=== PATIENT | female | born 1995 | race Caucasian/White ===

== ENCOUNTER 2016-10-20 21:42 | Emergency (ER) | payer OTHER ==
--- NOTE | 2016-10-20 23:58 | ED NURSING NOTES ---
Clinical Report - Nurses [facility] [address] [place] [address] 10/20/2016 21:45 Patient: JODEE BENNETT TRIAGE Triage time 22:13 Oct 20 2016. Acuity: LEVEL 4. Chief Complaint: INJURY TO LEFT ANKLE. 22:14 10/20/16. MARTHA COMA SCORE: [place] Coma Scale: 15- eyes open spontaneously (4); best verbal response- oriented x 4 (5); best motor response- obeys commands (6). --22:17 Cheri Menjivar R.N. 22:13 10/20/16. BP: 129/58. HR: 91. RR: 18. O2 saturation: 100%. Temp: 98.3 F. Pain level now: 11/13. --22:17 Cheri Menjivar R.N. Weight: 97 kg stated. Height/Length: 69 inches Per Patient. BMI: 31.6. --22:12 Cheri Menjivar R.N. Medications Inhalers x 2 . --22:14 Cheri Menjivar R.N. Medication/allergy information source: the patient. --22:17 Cheri Menjivar R.N. Allergies No Known Drug Allergy. --22:14 Cheri Menjivar R.N. History Arrived by private vehicle. Historian: patient. Accompanied by family. Mechanism of injury: sustained a twisting injury. ( tripped over 2 cats on the steps. internally rotated). 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 PAST MEDICAL HX: Uses depo injections. SOCIAL HX: Never smoker. No alcohol use or drug use. No infectious disease exposure. ABUSE ASSESSMENT: No report of abuse. NUTRITIONAL RISK ASSESSMENT: The nutritional risk assessment revealed no deficiencies. FUNCTIONAL ASSESSMENT: Functional assessment: no impairments noted. LEARNING NEEDS ASSESSMENT: The learning needs assessment revealed no barriers. SKIN INTEGRITY ASSESSMENT: Skin integrity risk assessment completed. No skin integrity risk identified. --22:17 Cheri Menjivar R.N. PROBLEMS: Asthma. --22:14 Cheri Menjivar R.N. ADDITIONAL SURGERIES: no known surgeries. Interventions ID band on patient. --22:17 Cheri Menjivar R.N. PHYSICAL ASSESSMENT 22:10/20/16. GENERAL / NEURO / PSYCH: Oriented X 4. Alert. Appears in no acute distress. EXTREMITIES: Pain with weight bearing. Left ankle: tenderness and swelling. Limited ROM secondary to pain (diminished plantar flexion, dorsiflexion, inversion and eversion). SKIN: Skin intact. Skin is warm and dry. --22: Cheri Menjivar R.N. NURSING PROGRESS NOTES 22:10/20/16. The initial plan of care for this patient includes an assessment with efforts to address the presence of pain; impairment of the musculoskeletal system. This plan of care was discussed with the patient. Cold pack applied to the left ankle. Reassurance given. Two patient identifiers checked. Call light placed in reach. Side rails up x 1. Bed placed in lowest position. Brakes of bed on. Patient ready for evaluation. --: Cheri Menjivar R.N. DISPOSITION / DISCHARGE 00:10/21/16. Condition at departure: improved and stable. The goals identified in the patient's plan of care were met. No learning barriers present. Reviewed medication(s) side effects, precautions, dosing and course information. Prescription(s) given to the patient. Reviewed referral to an orthopedic surgeon for followup. Summary of care provided to patient via paper. Patient verbalized understanding. Written instructions provided in Arabic. The patient was discharged home and accompanied by cuff runner. She left the Emergency Department ambulatory on crutches and via private vehicle. Patient driving. FALL RISK ASSESSMENT: Fall risk assessment completed. No fall risk identified. --00:15 Cheri Menjivar R.N. 00:15 10/21/16. BP: 122/69. HR: 70. RR: 16. O2 saturation: 100%. Temp: 98.5 F. Pain level now 5/10. --00:15 Cheri Menjivar R.N. Departure time: 00:Oct 21 2016. --00:15 Cheri Menjivar R.N. Locked/Released at 10/21/2016 0:15 by Cheri Menjivar R.N.
--- NOTE | 2016-10-20 23:58 | ED ORDER SUMMARY ---
..... Patient: JODEE BENNETT OrderSheet [facility] VisitID: [id number] [address] [place] [address] 21y, F Registration Date/Time: 10/20/2016 ORDER SHEET Weight: 97.0 kg (stated) Allergies: No Known Drug Allergy GENERAL ORDERS: Ankle 3 or 4V Left Urgent (22:23 10/20/2016 EInderbitzen R.N. verbal order read back to Kwadwo Blanc) (Ack 22:26 CHagerty ER Legal Stenographer) (22:41 HBivens A.R.N.P.) (Cancelled: Other22:41 HBivens A.R.N.P.) Foot 3V Left Urgent (22:41 10/20/2016 HBivens A.R.N.P.) (Ack 22:43 CHagerty ER Legal Stenographer) (22:45 CHagerty ER Legal Stenographer) Orthopedic Boot (23:57 10/20/2016 HBivens A.R.N.P.) (0:08 EInderbitzen R.N.) MEDICATION ORDERS: IV FLUIDS: ORDER SHEET NOTES: [Electronically signed by Cheri Menjivar R.N. (00:15 10/21/2016)] [Electronically signed by Rosa Carpenter A.R.N.P. (13:41 10/29/2016)] [Electronically locked/signed by Cheri Menjivar R.N. (00:15 10/21/2016)]
--- NOTE | 2016-10-20 23:58 | ED CLINICAL REPORT ---
Clinical Report - Physicians/Mid Levels [facility] [address] [place] [address] 10/20/2016 21:45 Patient: JODEE BENNETT Time Seen: 22:27; initial patient contact, initial documentation, patient care assumed. Arrived- By private vehicle. Historian- patient. HISTORY OF PRESENT ILLNESS Chief Complaint: Injury to the left foot. The injury happened just prior to arrival. The patient sustained a twisting injury (tripped over cat). Occurred at home. Patient is experiencing moderate pain. Patient denies injury to the head or neck. No other injury. REVIEW OF SYSTEMS The patient complains of pain on weight bearing. She has had swelling. No tingling, weakness, numbness or skin laceration. All systems otherwise negative, except as recorded above. PAST HISTORY See nurses notes. PROBLEMS: Asthma. --22:14 Cheri Menjivar R.N. ADDITIONAL SURGERIES: no known surgeries. SOCIAL HISTORY Never smoker. No alcohol use or drug use. No recent travel. Is a local resident. FAMILY HISTORY No significant family medical history. ADDITIONAL NOTES The nursing notes have been reviewed with agreement regarding the chief complaint, HPI, ROS, PMH and patient medications and allergies. PHYSICAL EXAM Vital Signs: 10/20/2016 22:13 BP: 129/58. HR: 91. RR: 18. O2 saturation: 100%. Temp: 98.3 F. Pain level now: 5/10. Have been reviewed as normal and appear to be correct. Appearance: Alert. Oriented X3. No acute distress. Head: Head atraumatic. Eyes: Pupils equal, round and reactive to light. Eyes normal inspection. Respiratory: No respiratory distress. Skin: Skin intact. Skin warm and dry. Extremities: Foot injury present. Left foot: mild tenderness of the proximal and distal dorsal aspect of the mid foot. Limited weight bearing secondary to pain. Neurovascular intact distally. No erythema, swelling, laceration, abrasion or ecchymosis. No puncture wound, foreign body or deformity. No ankle injury. Foot and ankle exam otherwise negative. Extremities otherwise negative. Neuro, Vascular and Tendons: Vascular status intact. Sensation intact. Motor intact. Tendon function intact. Gait: Abnormal gait. Gait not tested due to pain. Neuro: Oriented X 3. No motor deficit. No sensory deficit. Note: isolated injury to foot. LABS, X-RAYS, AND EKG X-Rays: Left foot. Lt Foot X-ray: (? third metatarsal fx reviewed by dr wolfe). The X-rays were independently viewed by me. PROGRESS AND PROCEDURES Patient and spouse counseled in person regarding the patient's stable condition, test results and diagnosis. Differential Diagnosis: Other possible considerations: foot fx vs sprain. Above considerations are based on history, physical exam, reassessment and X-Ray data. Differential diagnosis was discussed with patient. Disposition: Discharged home in good and improved condition (23:57). Condition: good and stable. CLINICAL IMPRESSION Closed fracture of the base of the third metatarsal of the left foot. No angulated fracture of the metacarpal. INSTRUCTIONS Apply ice for 20 minutes four times a day for two days until better. Don't apply ice directly to skin. Wear boot orthosis until better. Elevate affected areas above chest level for two days until better. Warnings: GENERAL WARNINGS: Return or contact your physician immediately if your condition worsens or changes unexpectedly, if not improving as expected, or if other problems arise. Specifically return if problem worsens. Prescription Medications: Ultram 50 mg tablets: take 1-2 orally every 6 hours as needed for pain. Dispense twenty (20). No refills. Substitution is permissible. Follow-up: Follow up with your doctor in about one week as needed. Call for an appointment. Summary of care provided to patient. Understanding of the discharge instructions verbalized by patient. Follow-up with: Zion Hoffman DPM, Podiatry, , [address] [place] [address]. [address], [place] [address]; Dajuan Cobian DPM, Podiatry, , [facility], [address] [place] [address], [address], [place] [address] Follow up in about three days even if well. Call for an appointment. Summary of care provided to patient. (Electronically signed by Rosa Carpenter A.R.N.P. 10/29/2016 13:41)
--- NOTE | 2016-10-20 23:58 | ED CLINICAL REPORT ---
Clinical Report - Physicians/Mid Levels [facility] [address] [place] [address] 10/20/2016 21:45 Patient: JODEE BENNETT Time Seen: 22:27; initial patient contact, initial documentation, patient care assumed. Arrived- By private vehicle. Historian- patient. HISTORY OF PRESENT ILLNESS Chief Complaint: Injury to the left foot. The injury happened just prior to arrival. The patient sustained a twisting injury (tripped over cat). Occurred at home. Patient is experiencing moderate pain. Patient denies injury to the head or neck. No other injury. REVIEW OF SYSTEMS The patient complains of pain on weight bearing. She has had swelling. No tingling, weakness, numbness or skin laceration. All systems otherwise negative, except as recorded above. PAST HISTORY See nurses notes. PROBLEMS: Asthma. --22:14 Cheri Menjivar R.N. ADDITIONAL SURGERIES: no known surgeries. SOCIAL HISTORY Never smoker. No alcohol use or drug use. No recent travel. Is a local resident. FAMILY HISTORY No significant family medical history. ADDITIONAL NOTES The nursing notes have been reviewed with agreement regarding the chief complaint, HPI, ROS, PMH and patient medications and allergies. PHYSICAL EXAM Vital Signs: 10/20/2016 22:13 BP: 129/58. HR: 91. RR: 18. O2 saturation: 100%. Temp: 98.3 F. Pain level now: 5/10. Have been reviewed as normal and appear to be correct. Appearance: Alert. Oriented X3. No acute distress. Head: Head atraumatic. Eyes: Pupils equal, round and reactive to light. Eyes normal inspection. Respiratory: No respiratory distress. Skin: Skin intact. Skin warm and dry. Extremities: Foot injury present. Left foot: mild tenderness of the proximal and distal dorsal aspect of the mid foot. Limited weight bearing secondary to pain. Neurovascular intact distally. No erythema, swelling, laceration, abrasion or ecchymosis. No puncture wound, foreign body or deformity. No ankle injury. Foot and ankle exam otherwise negative. Extremities otherwise negative. Neuro, Vascular and Tendons: Vascular status intact. Sensation intact. Motor intact. Tendon function intact. Gait: Abnormal gait. Gait not tested due to pain. Neuro: Oriented X 3. No motor deficit. No sensory deficit. Note: isolated injury to foot. LABS, X-RAYS, AND EKG X-Rays: Left foot. Lt Foot X-ray: (? third metatarsal fx reviewed by dr wolfe). The X-rays were independently viewed by me. PROGRESS AND PROCEDURES Patient and spouse counseled in person regarding the patient's stable condition, test results and diagnosis. Differential Diagnosis: Other possible considerations: foot fx vs sprain. Above considerations are based on history, physical exam, reassessment and X-Ray data. Differential diagnosis was discussed with patient. Disposition: Discharged home in good and improved condition (23:57). Condition: good and stable. CLINICAL IMPRESSION Closed fracture of the base of the third metatarsal of the left foot. No angulated fracture of the metacarpal. INSTRUCTIONS Apply ice for 20 minutes four times a day for two days until better. Don't apply ice directly to skin. Wear boot orthosis until better. Elevate affected areas above chest level for two days until better. Warnings: GENERAL WARNINGS: Return or contact your physician immediately if your condition worsens or changes unexpectedly, if not improving as expected, or if other problems arise. Specifically return if problem worsens. Prescription Medications: Ultram 50 mg tablets: take 1-2 orally every 6 hours as needed for pain. Dispense twenty (20). No refills. Substitution is permissible. Follow-up: Follow up with your doctor in about one week as needed. Call for an appointment. Summary of care provided to patient. Understanding of the discharge instructions verbalized by patient. Follow-up with: Zion Hoffman DPM, Podiatry, , [address] [place] [address]. [address], [place] [address]; Dajuan Cobian DPM, Podiatry, , [facility], [address] [place] [address], [address], [place] [address] Follow up in about three days even if well. Call for an appointment. Summary of care provided to patient. (Electronically signed by Rosa Carpenter A.R.N.P. 10/29/2016 13:41)
--- NOTE | 2016-10-20 23:58 | ED ORDER SUMMARY ---
..... Patient: JODEE BENNETT OrderSheet [facility] VisitID: [id number] [address] [place] [address] 21y, F Registration Date/Time: 10/20/2016 ORDER SHEET Weight: 97.0 kg (stated) Allergies: No Known Drug Allergy GENERAL ORDERS: Ankle 3 or 4V Left Urgent (22:23 10/20/2016 EInderbitzen R.N. verbal order read back to Kwadwo Blanc) (Ack 22:26 CHagerty ER Site Lead) (22:41 HBivens A.R.N.P.) (Cancelled: Other22:41 HBivens A.R.N.P.) Foot 3V Left Urgent (22:41 10/20/2016 HBivens A.R.N.P.) (Ack 22:43 CHagerty ER Site Lead) (22:45 CHagerty ER Site Lead) Orthopedic Boot (23:57 10/20/2016 HBivens A.R.N.P.) (0:08 EInderbitzen R.N.) MEDICATION ORDERS: IV FLUIDS: ORDER SHEET NOTES: [Electronically signed by Cheri Menjivar R.N. (00:15 10/21/2016)] [Electronically signed by Rosa Carpenter A.R.N.P. (13:41 10/29/2016)] [Electronically locked/signed by Cheri Menjivar R.N. (00:15 10/21/2016)]
--- NOTE | 2016-10-20 23:58 | ED NURSING NOTES ---
Clinical Report - Nurses [facility] [address] [place] [address] 10/20/2016 21:45 Patient: JODEE BENNETT TRIAGE Triage time 22:13 Oct 20 2016. Acuity: LEVEL 4. Chief Complaint: INJURY TO LEFT ANKLE. 22:14 10/20/16. MARTHA COMA SCORE: [place] Coma Scale: 15- eyes open spontaneously (4); best verbal response- oriented x 4 (5); best motor response- obeys commands (6). --22:17 Cheri Menjivar R.N. 22:13 10/20/16. BP: 129/58. HR: 91. RR: 18. O2 saturation: 100%. Temp: 98.3 F. Pain level now: 11/13. --22:17 Cheri Menjivar R.N. Weight: 97 kg stated. Height/Length: 69 inches Per Patient. BMI: 31.6. --22:12 Cheri Menjivar R.N. Medications Inhalers x 2 . --22:14 Cheri Menjivar R.N. Medication/allergy information source: the patient. --22:17 Cheri Menjivar R.N. Allergies No Known Drug Allergy. --22:14 Cheri Menjivar R.N. History Arrived by private vehicle. Historian: patient. Accompanied by family. Mechanism of injury: sustained a twisting injury. ( tripped over 2 cats on the steps. internally rotated). 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 PAST MEDICAL HX: Uses depo injections. SOCIAL HX: Never smoker. No alcohol use or drug use. No infectious disease exposure. ABUSE ASSESSMENT: No report of abuse. NUTRITIONAL RISK ASSESSMENT: The nutritional risk assessment revealed no deficiencies. FUNCTIONAL ASSESSMENT: Functional assessment: no impairments noted. LEARNING NEEDS ASSESSMENT: The learning needs assessment revealed no barriers. SKIN INTEGRITY ASSESSMENT: Skin integrity risk assessment completed. No skin integrity risk identified. --22:17 Cheri Menjivar R.N. PROBLEMS: Asthma. --22:14 Cheri Menjivar R.N. ADDITIONAL SURGERIES: no known surgeries. Interventions ID band on patient. --22:17 Cheri Menjivar R.N. PHYSICAL ASSESSMENT 22:10/20/16. GENERAL / NEURO / PSYCH: Oriented X 4. Alert. Appears in no acute distress. EXTREMITIES: Pain with weight bearing. Left ankle: tenderness and swelling. Limited ROM secondary to pain (diminished plantar flexion, dorsiflexion, inversion and eversion). SKIN: Skin intact. Skin is warm and dry. --22: Cheri Menjivar R.N. NURSING PROGRESS NOTES 22:10/20/16. The initial plan of care for this patient includes an assessment with efforts to address the presence of pain; impairment of the musculoskeletal system. This plan of care was discussed with the patient. Cold pack applied to the left ankle. Reassurance given. Two patient identifiers checked. Call light placed in reach. Side rails up x 1. Bed placed in lowest position. Brakes of bed on. Patient ready for evaluation. --: Cehri Menjivar R.N. DISPOSITION / DISCHARGE 00:10/21/16. Condition at departure: improved and stable. The goals identified in the patient's plan of care were met. No learning barriers present. Reviewed medication(s) side effects, precautions, dosing and course information. Prescription(s) given to the patient. Reviewed referral to an orthopedic surgeon for followup. Summary of care provided to patient via paper. Patient verbalized understanding. Written instructions provided in Italian. The patient was discharged home and accompanied by road cleaner. She left the Emergency Department ambulatory on crutches and via private vehicle. Patient driving. FALL RISK ASSESSMENT: Fall risk assessment completed. No fall risk identified. --00:15 Cheri Menjivar R.N. 00:15 10/21/16. BP: 122/69. HR: 70. RR: 16. O2 saturation: 100%. Temp: 98.5 F. Pain level now 5/10. --00:15 Cheri Menjivar R.N. Departure time: 00:Oct 21 2016. --00:15 Cheri Menjivar R.N. Locked/Released at 10/21/2016 0:15 by Cheri Menjivar R.N.
--- NOTE | 2016-10-21 00:18 | DIAGNOSTIC IMAGING REPORT ---
PROCEDURE: XR FOOT 3 VIEWS - LEFT INDICATION: TRAUMA/INJURY TECHNIQUE: Three views. COMPARISON: None. FINDINGS: Osseous structures and joint spaces are normal. IMPRESSION: 1. Normal left foot.
--- NOTE | 2016-10-29 13:41 | ED MED RECONCILIATION SUMMARY ---
Patient: JODEE BENNETT Medication Reconciliation Report [facility] VisitID: [id number] [address] [place] [address] 21y, F Registration Date/Time: 10/20/2016 Weight: 97.0 kg Height/Length: 69 in. BMI: 31.6 ALLERGIES: No Known Drug Allergy The patient's Home Medications are listed below: THE FOLLOWING MEDICATIONS NEED TO BE RECONCILED: Inhalers x 2 The source(s) of the original Home Medication information: patient The following Medications were given to the patient in the Emergency Department: None. The following Medications were prescribed to the patient: Ultram 50 mg tablets: take 1-2 orally every 6 hours as needed for pain. Dispense twenty (20). No refills. Substitution is permissible. -- Rosa Carpenter A.R.N.P.
--- NOTE | 2016-10-29 13:41 | ED MED RECONCILIATION SUMMARY ---
Patient: JODEE BENNETT Medication Reconciliation Report [facility] VisitID: [id number] [address] [place] [address] 21y, F Registration Date/Time: 10/20/2016 Weight: 97.0 kg Height/Length: 69 in. BMI: 31.6 ALLERGIES: No Known Drug Allergy The patient's Home Medications are listed below: THE FOLLOWING MEDICATIONS NEED TO BE RECONCILED: Inhalers x 2 The source(s) of the original Home Medication information: patient The following Medications were given to the patient in the Emergency Department: None. The following Medications were prescribed to the patient: Ultram 50 mg tablets: take 1-2 orally every 6 hours as needed for pain. Dispense twenty (20). No refills. Substitution is permissible. -- Rosa Carpenter A.R.N.P.
--- NOTE | 2016-10-29 13:41 | ED DISCHARGE INSTRUCTIONS ---
Patient: JODEE BENNETT General Instructions [facility] VisitID: [id number] [address] [place] [address] 21y, F Registration Date/Time: 10/20/2016 Closed fracture of the base of the third metatarsal of the left foot. No angulated fracture of the metacarpal. INSTRUCTIONS Apply ice for 20 minutes four times a day for two days until better. Don't apply ice directly to skin. Wear boot orthosis until better. Elevate affected areas above chest level for two days until better. Warnings: GENERAL WARNINGS: Return or contact your physician immediately if your condition worsens or changes unexpectedly, if not improving as expected, or if other problems arise. Specifically return if problem worsens. Prescription Medications: Ultram 50 mg tablets: take 1-2 orally every 6 hours as needed for pain. Dispense twenty (20). No refills. Substitution is permissible. Follow-up: Follow up with your doctor in about one week as needed. Call for an appointment. Summary of care provided to patient. Understanding of the discharge instructions verbalized by patient. Follow-up with: Zion Hoffman DPM, Podiatry, , [address] [place] [address]. [address], [place] [address]; Dajuan Cobian DPM, Podiatry, , [facility], [address] [place] [address], [address], [place] [address] Follow up in about three days even if well. Call for an appointment. Summary of care provided to patient. ADDITIONAL INFORMATION Fracture:Foot You have a fracture (break) of one of the bones in your foot. This will cause pain, swelling and sometimes bruising. It will take about 4-6 weeks to heal. A foot fracture may be treated with a special shoe, splint, cast or boot. Home Care: You may be given a splint, cast, shoe or boot to prevent movement at the injury. Unless you were told otherwise, use crutches or a walker and do not bear weight on the injured foot until cleared by your doctor to do so. (Crutches and walkers can be rented at many pharmacies and surgical/orthopedic supply stores). Do not put weight on a splint; it will break. Keep your leg elevated to reduce pain and swelling. When sleeping, place a pillow under the injured leg. When sitting, support the injured leg so it is level with your waist. This is very important during the first 48 hours. Apply an ice pack (ice cubes in a plastic bag, wrapped in a towel) over the injured area for 20 minutes every 1-2 hours the first day. You can place the ice pack directly over the splint/cast. Unless told otherwise, you can open the boot or shoe to apply ice. Continue with ice packs 3-4 times a day for the next two days, then as needed for the relief of pain and swelling. Keep the splint/cast/boot/shoe dry. When bathing, protect it with a large plastic bag, rubber-banded at the top end. If a fiberglass splint/cast or boot gets wet, you can dry it with a hair-dryer. Unless told otherwise, you can remove a boot or shoe to bathe. You may use acetaminophen (Tylenol) or ibuprofen (Motrin, Advil) to control pain, unless another pain medicine was prescribed. [NOTE: If you have chronic liver or kidney disease or ever had a stomach ulcer or GI bleeding, talk with your doctor before using these medicines.] Follow Up with your doctor within one week, or as advised by our staff, to be sure the bone is healing properly. If you were given a splint, it may be changed to a cast or boot at your follow-up visit.[NOTE: A radiologist will review any X-rays that were taken. We will notify you of any new findings that may affect your care.] Get Prompt Medical Attention if any of the following occur: The plaster cast or splint becomes wet or soft The fiberglass cast or splint remains wet for more than 24 hours Increased tightness or pain under the cast or splint Toes become swollen, cold, blue, numb or tingly Aircast Sp-Walker Boot Traditional splints and casts for the foot and ankle protect the injury by preventing movement at the joints. However, many injuries heal better and faster if the injured joint can be moved, while protected at the same time. This is the reason for using an Aircast Walker boot. This is a short boot that provides support and protection to the foot and ankle while allowing you to walk. It contains padded air cells that provide compression and help circulation. It is used for both foot and ankle injuries - both sprains and minor fractures. Ankle and foot sprains can take 4-6 weeks to heal. Persons with severe injuries or over age 60 may require more time to heal. During that time, you are prone to re-injury by suddenly twisting your foot or ankle again while the ligaments are still weak. When treating a sprain, the [place] Walker boot should be worn whenever walking for at least four weeks, or as long as you continue to have ankle pain. Talk to your doctor for specific advice about the treatment of your condition. Air-Stirrup and SP-Walker are trademarks of [employer]. For more information about their products, see www.[employer]. Tramadol Hydrochloride Oral tablet What is this medicine? TRAMADOL (TRA ma dole) is a pain reliever. It is used to treat moderate to severe pain in adults. How should I use this medicine? Take this medicine by mouth with a full glass of water. Follow the directions on the prescription label. If the medicine upsets your stomach, take it with food or milk. Do not take more medicine than you are told to take. Talk to your solar energy sales specialist regarding the use of this medicine in children. Special care may be needed. What side effects may I notice from receiving this medicine? Side effects that you should report to your doctor or health palliative care physician as soon as possible: allergic reactions like skin rash, itching or hives, swelling of the face, lips, or tongue breathing difficulties, wheezing confusion itching light headedness or fainting spells redness, blistering, peeling or loosening of the skin, including inside the mouth seizures Side effects that usually do not require medical attention (report to your doctor or health palliative care physician if they continue or are bothersome): constipation dizziness drowsiness headache nausea, vomiting What may interact with this medicine? Do not take this medicine with any of the following medications: MAOIs like Carbex, Eldepryl, Marplan, Nardil, and Parnate This medicine may also interact with the following medications: alcohol or medicines that contain alcohol antihistamines benzodiazepines bupropion carbamazepine or oxcarbazepine clozapine cyclobenzaprine digoxin furazolidone linezolid medicines for depression, anxiety, or psychotic disturbances medicines for migraine headache like almotriptan, eletriptan, frovatriptan, naratriptan, rizatriptan, sumatriptan, zolmitriptan medicines for pain like pentazocine, buprenorphine, butorphanol, meperidine, nalbuphine, and propoxyphene medicines for sleep muscle relaxants naltrexone phenobarbital phenothiazines like perphenazine, thioridazine, chlorpromazine, mesoridazine, fluphenazine, prochlorperazine, promazine, and trifluoperazine procarbazine warfarin What if I miss a dose? If you miss a dose, take it as soon as you can. If it is almost time for your next dose, take only that dose. Do not take double or extra doses. Where should I keep my medicine? Keep out of the reach of children. Store at room temperature between 15 and 30 degrees C (59 and 86 degrees F). Keep container tightly closed. Throw away any unused medicine after the expiration date. What should I tell my health care provider before I take this medicine? They need to know if you have any of these conditions: brain tumor depression drug abuse or addiction head injury if you frequently drink alcohol containing drinks kidney disease or trouble passing urine liver disease lung disease, asthma, or breathing problems seizures or epilepsy suicidal thoughts, plans, or attempt; a previous suicide attempt by you or a family member an unusual or allergic reaction to tramadol, codeine, other medicines, foods, dyes, or preservatives or trying to get breast-feeding What should I watch for while using this medicine? Tell your doctor or health palliative care physician if your pain does not go away, if it gets worse, or if you have new or a different type of pain. You may develop tolerance to the medicine. Tolerance means that you will need a higher dose of the medicine for pain relief. Tolerance is normal and is expected if you take this medicine for a long time. Do not suddenly stop taking your medicine because you may develop a severe reaction. Your body becomes used to the medicine. This does NOT mean you are addicted. Addiction is a behavior related to getting and using a drug for a non-medical reason. If you have pain, you have a medical reason to take pain medicine. Your doctor will tell you how much medicine to take. If your doctor wants you to stop the medicine, the dose will be slowly lowered over time to avoid any side effects. You may get drowsy or dizzy. Do not drive, use machinery, or do anything that needs mental alertness until you know how this medicine affects you. Do not stand or sit up quickly, especially if you are an older patient. This reduces the risk of dizzy or fainting spells. Alcohol can increase or decrease the effects of this medicine. Avoid alcoholic drinks. You may have constipation. Try to have a bowel movement at least every 2 to 3 days. If you do not have a bowel movement for 3 days, call your doctor or health palliative care physician. Your mouth may get dry. Chewing sugarless gum or sucking hard candy, and drinking plenty of water may help. Contact your doctor if the problem does not go away or is severe. You have been given the following additional information: Fracture, Foot Walker Boot Tramadol Hydrochloride Oral tablet (Electronically signed by Rosa Carpenter A.R.N.P. 10/29/2016 13:41)
--- NOTE | 2016-10-29 13:41 | ED MAR SUMMARY ---
..... Medication Administration Record [facility] [address], [place] [id number] Patient: JODEE BENNETT Visit ID: [id number] 21y, F Weight: 97.0 kg Height/Length: 69 in BMI: 31.6 ALLERGIES: No Known Drug Allergy
--- NOTE | 2016-10-29 13:41 | ED MAR SUMMARY ---
..... Medication Administration Record [facility] [address] [place], [place] [id number] Patient: JODEE BENNETT Visit ID: [id number] 21y, F Weight: 97.0 kg Height/Length: 69 in BMI: 31.6 ALLERGIES: No Known Drug Allergy
--- NOTE | 2016-10-29 13:41 | ED DISCHARGE INSTRUCTIONS ---
Patient: JODEE BENNETT General Instructions [facility] VisitID: [id number] [address] [place] [place] [address] 21y, F Registration Date/Time: 10/20/2016 Closed fracture of the base of the third metatarsal of the left foot. No angulated fracture of the metacarpal. INSTRUCTIONS Apply ice for 20 minutes four times a day for two days until better. Don't apply ice directly to skin. Wear boot orthosis until better. Elevate affected areas above chest level for two days until better. Warnings: GENERAL WARNINGS: Return or contact your physician immediately if your condition worsens or changes unexpectedly, if not improving as expected, or if other problems arise. Specifically return if problem worsens. Prescription Medications: Ultram 50 mg tablets: take 1-2 orally every 6 hours as needed for pain. Dispense twenty (20). No refills. Substitution is permissible. Follow-up: Follow up with your doctor in about one week as needed. Call for an appointment. Summary of care provided to patient. Understanding of the discharge instructions verbalized by patient. Follow-up with: Zion Hoffman DPM, Podiatry, , [address] [place] [address]. [address], [place] [address]; Dajuan Cobian DPM, Podiatry, , [facility], [address] [place] [address], [address], [place] [address] Follow up in about three days even if well. Call for an appointment. Summary of care provided to patient. ADDITIONAL INFORMATION Fracture:Foot You have a fracture (break) of one of the bones in your foot. This will cause pain, swelling and sometimes bruising. It will take about 4-6 weeks to heal. A foot fracture may be treated with a special shoe, splint, cast or boot. Home Care: You may be given a splint, cast, shoe or boot to prevent movement at the injury. Unless you were told otherwise, use crutches or a walker and do not bear weight on the injured foot until cleared by your doctor to do so. (Crutches and walkers can be rented at many pharmacies and surgical/orthopedic supply stores). Do not put weight on a splint; it will break. Keep your leg elevated to reduce pain and swelling. When sleeping, place a pillow under the injured leg. When sitting, support the injured leg so it is level with your waist. This is very important during the first 48 hours. Apply an ice pack (ice cubes in a plastic bag, wrapped in a towel) over the injured area for 20 minutes every 1-2 hours the first day. You can place the ice pack directly over the splint/cast. Unless told otherwise, you can open the boot or shoe to apply ice. Continue with ice packs 3-4 times a day for the next two days, then as needed for the relief of pain and swelling. Keep the splint/cast/boot/shoe dry. When bathing, protect it with a large plastic bag, rubber-banded at the top end. If a fiberglass splint/cast or boot gets wet, you can dry it with a hair-dryer. Unless told otherwise, you can remove a boot or shoe to bathe. You may use acetaminophen (Tylenol) or ibuprofen (Motrin, Advil) to control pain, unless another pain medicine was prescribed. [NOTE: If you have chronic liver or kidney disease or ever had a stomach ulcer or GI bleeding, talk with your doctor before using these medicines.] Follow Up with your doctor within one week, or as advised by our staff, to be sure the bone is healing properly. If you were given a splint, it may be changed to a cast or boot at your follow-up visit.[NOTE: A radiologist will review any X-rays that were taken. We will notify you of any new findings that may affect your care.] Get Prompt Medical Attention if any of the following occur: The plaster cast or splint becomes wet or soft The fiberglass cast or splint remains wet for more than 24 hours Increased tightness or pain under the cast or splint Toes become swollen, cold, blue, numb or tingly Aircast Sp-Walker Boot Traditional splints and casts for the foot and ankle protect the injury by preventing movement at the joints. However, many injuries heal better and faster if the injured joint can be moved, while protected at the same time. This is the reason for using an Aircast Walker boot. This is a short boot that provides support and protection to the foot and ankle while allowing you to walk. It contains padded air cells that provide compression and help circulation. It is used for both foot and ankle injuries - both sprains and minor fractures. Ankle and foot sprains can take 4-6 weeks to heal. Persons with severe injuries or over age 60 may require more time to heal. During that time, you are prone to re-injury by suddenly twisting your foot or ankle again while the ligaments are still weak. When treating a sprain, the [place] Walker boot should be worn whenever walking for at least four weeks, or as long as you continue to have ankle pain. Talk to your doctor for specific advice about the treatment of your condition. Air-Stirrup and SP-Walker are trademarks of [employer]. For more information about their products, see www.[employer]. Tramadol Hydrochloride Oral tablet What is this medicine? TRAMADOL (TRA ma dole) is a pain reliever. It is used to treat moderate to severe pain in adults. How should I use this medicine? Take this medicine by mouth with a full glass of water. Follow the directions on the prescription label. If the medicine upsets your stomach, take it with food or milk. Do not take more medicine than you are told to take. Talk to your labor delivery rn regarding the use of this medicine in children. Special care may be needed. What side effects may I notice from receiving this medicine? Side effects that you should report to your doctor or health resident care supervisor as soon as possible: allergic reactions like skin rash, itching or hives, swelling of the face, lips, or tongue breathing difficulties, wheezing confusion itching light headedness or fainting spells redness, blistering, peeling or loosening of the skin, including inside the mouth seizures Side effects that usually do not require medical attention (report to your doctor or health resident care supervisor if they continue or are bothersome): constipation dizziness drowsiness headache nausea, vomiting What may interact with this medicine? Do not take this medicine with any of the following medications: MAOIs like Carbex, Eldepryl, Marplan, Nardil, and Parnate This medicine may also interact with the following medications: alcohol or medicines that contain alcohol antihistamines benzodiazepines bupropion carbamazepine or oxcarbazepine clozapine cyclobenzaprine digoxin furazolidone linezolid medicines for depression, anxiety, or psychotic disturbances medicines for migraine headache like almotriptan, eletriptan, frovatriptan, naratriptan, rizatriptan, sumatriptan, zolmitriptan medicines for pain like pentazocine, buprenorphine, butorphanol, meperidine, nalbuphine, and propoxyphene medicines for sleep muscle relaxants naltrexone phenobarbital phenothiazines like perphenazine, thioridazine, chlorpromazine, mesoridazine, fluphenazine, prochlorperazine, promazine, and trifluoperazine procarbazine warfarin What if I miss a dose? If you miss a dose, take it as soon as you can. If it is almost time for your next dose, take only that dose. Do not take double or extra doses. Where should I keep my medicine? Keep out of the reach of children. Store at room temperature between 15 and 30 degrees C (59 and 86 degrees F). Keep container tightly closed. Throw away any unused medicine after the expiration date. What should I tell my health care provider before I take this medicine? They need to know if you have any of these conditions: brain tumor depression drug abuse or addiction head injury if you frequently drink alcohol containing drinks kidney disease or trouble passing urine liver disease lung disease, asthma, or breathing problems seizures or epilepsy suicidal thoughts, plans, or attempt; a previous suicide attempt by you or a family member an unusual or allergic reaction to tramadol, codeine, other medicines, foods, dyes, or preservatives or trying to get breast-feeding What should I watch for while using this medicine? Tell your doctor or health resident care supervisor if your pain does not go away, if it gets worse, or if you have new or a different type of pain. You may develop tolerance to the medicine. Tolerance means that you will need a higher dose of the medicine for pain relief. Tolerance is normal and is expected if you take this medicine for a long time. Do not suddenly stop taking your medicine because you may develop a severe reaction. Your body becomes used to the medicine. This does NOT mean you are addicted. Addiction is a behavior related to getting and using a drug for a non-medical reason. If you have pain, you have a medical reason to take pain medicine. Your doctor will tell you how much medicine to take. If your doctor wants you to stop the medicine, the dose will be slowly lowered over time to avoid any side effects. You may get drowsy or dizzy. Do not drive, use machinery, or do anything that needs mental alertness until you know how this medicine affects you. Do not stand or sit up quickly, especially if you are an older patient. This reduces the risk of dizzy or fainting spells. Alcohol can increase or decrease the effects of this medicine. Avoid alcoholic drinks. You may have constipation. Try to have a bowel movement at least every 2 to 3 days. If you do not have a bowel movement for 3 days, call your doctor or health resident care supervisor. Your mouth may get dry. Chewing sugarless gum or sucking hard candy, and drinking plenty of water may help. Contact your doctor if the problem does not go away or is severe. You have been given the following additional information: Fracture, Foot Walker Boot Tramadol Hydrochloride Oral tablet (Electronically signed by Rosa Carpenter A.R.N.P. 10/29/2016 13:41)
== END 2016-10-21 00:15 | disposition home or self-care (01) ==
LOC: ED SRH 21:42
DX: S92.332A Displaced fracture of third metatarsal bone, left foot, initial encounter for closed fracture (principal); X50.0XXA Overexertion from strenuous movement or load, initial encounter; Y92.009 Unspecified place in unspecified non-institutional (private) residence as the place of occurrence of the external cause